=== PATIENT | female | born 1930 | race Caucasian/White ===

== ENCOUNTER → 2016-07-22 | Outpatient (CLI) | payer MEDICARE, OTHER ==
[~2016-07-22] VITALS: Ht 160 cm; Wt 71.0 kg
[~2016-07-22] MED LIST: ACET-66 PO; ASCO500T43 PO; BETA1TAB20 PO; NITR50CA PO; OXYC1TAB66 PO; VITAD1000 PO
[2016-07-22 09:13] VITALS: BP 125/77
== END | disposition home or self-care (01) ==
LOC: SRCNTR 09:09
PROVIDERS: ATTEND Hospitalist
DX: M81.0 Age-related osteoporosis without current pathological fracture (principal); Z87.440 Personal history of urinary (tract) infections
CPT/HCPCS: G0463

== ENCOUNTER → 2016-09-08 | Outpatient (CLI) | payer MEDICARE, OTHER ==
[~2016-09-08] MED LIST changes: +IOHEXOL 300 MG/ML 10 ML VIAL ONE; +LIDOCAINE HCL/PF 1% 30 ML VIAL ONE
== END | disposition home or self-care (01) ==
LOC: RADMN 09:31
PROVIDERS: ATTEND Specialist
DX: M75.101 Unspecified rotator cuff tear or rupture of right shoulder, not specified as traumatic (principal); M19.011 Primary osteoarthritis, right shoulder; M65.811 Other synovitis and tenosynovitis, right shoulder
CPT/HCPCS: 73040; 73201; J3490; Q9967

== ENCOUNTER 2016-10-21 05:36 | Day surgery (SDC) | payer MEDICARE, OTHER ==
[~2016-10-21] VITALS: Ht 160 cm; Wt 70.0 kg
[~2016-10-21 05:36] MED LIST changes: -ACET-66 PO; +CRAN500C3 PO; +IBUP-14 PO; -IOHEXOL 300 MG/ML 10 ML VIAL ONE; -LIDOCAINE HCL/PF 1% 30 ML VIAL ONE; +MULT-248 PO; +OXYC-341 PO; -OXYC1TAB66 PO
[2016-10-21] MEDS ORDERED: SODIUM CHLORIDE 0.9% 1,000 ML IV ONE ×2 (06:00)
[2016-10-21] MEDS ORDERED: TRIAMCINOLONE ACETONIDE 40 MG/ML VIAL ONE (07:47)
[2016-10-21] MEDS ORDERED: LIDOCAINE HCL/PF 2% 5 ML VIAL ONE (07:47)
[2016-10-21] MEDS ORDERED: IOHEXOL 300 MG/ML 10 ML VIAL ONE (07:47)
[2016-10-21] MEDS ORDERED: BUPIVACAINE HCL/PF 0.75% 10 ML VIAL ONE (07:47)
[2016-10-21] MEDS ORDERED: MIDAZOLAM HCL 2 MG/2 ML VIAL ONE (07:48)
[2016-10-21] MEDS ORDERED: LIDOCAINE HCL/PF 1% 30 ML VIAL ONE (07:48)
[2016-10-21] MEDS ORDERED: FentaNYL CITRATE-PF 100 MCG/2 ML VIAL ONE (07:48)
[2016-10-21 08:04] VITALS: BP 165/93
[2016-10-21] MEDS ORDERED: FentaNYL CITRATE-PF 100 MCG/2 ML VIAL IVP ONE ×2 (08:15)
[2016-10-21] MEDS ORDERED: MIDAZOLAM HCL 2 MG/2 ML VIAL IVP ONE (08:15)
[2016-10-21 08:36] VITALS: BP 185/100
[2016-10-21] MEDS ORDERED: TRIAMCINOLONE ACETONIDE 40 MG/ML VIAL IARTIC ONE (08:45)
[2016-10-21] MEDS ORDERED: LIDOCAINE HCL/PF 1% 30 ML VIAL INJ ONE (08:45)
[2016-10-21] MEDS ORDERED: BUPIVACAINE HCL/PF 0.75% 10 ML VIAL IARTIC ONE (08:45)
== END 2016-10-21 12:55 | disposition home or self-care (01) ==
LOC: SDS 05:36
PROVIDERS: ATTEND Specialist
DX: M54.17 Radiculopathy, lumbosacral region (principal); F32.9 Major depressive disorder, single episode, unspecified; M54.9 Dorsalgia, unspecified; H35.3210 Exudative age-related macular degeneration, right eye, stage unspecified; Z98.890 Other specified postprocedural states; Z85.3 Personal history of malignant neoplasm of breast; Z85.828 Personal history of other malignant neoplasm of skin
CPT/HCPCS: 62323; 93005; J2250; J3010; J3301; J3490 ×2; J7030; Q9967

== ENCOUNTER → 2016-10-27 | Outpatient (CLI) | payer MEDICARE, OTHER ==
[~2016-10-27] MED LIST changes: +KETOROLAC TROMETHAMINE 30 MG/ML VIAL IVP ONE
[2016-10-27 10:02] VITALS: BP 120/83
== END | disposition home or self-care (01) ==
LOC: SRCNTR 09:54
PROVIDERS: ATTEND Hospitalist
DX: G89.4 Chronic pain syndrome (principal); N39.0 Urinary tract infection, site not specified; M16.11 Unilateral primary osteoarthritis, right hip
CPT/HCPCS: G0463; J1885

== ENCOUNTER 2016-11-24 09:15 | Emergency (ER) | payer MEDICARE, OTHER ==
[~2016-11-24] VITALS: Ht 162.6 cm; Wt 68.2 kg
[~2016-11-24 09:15] MED LIST changes: +ASCO-412 PO; -ASCO500T43 PO; -KETOROLAC TROMETHAMINE 30 MG/ML VIAL IVP ONE
[2016-11-24] MEDS ORDERED: PERTUSS(ACELL),DIPH,TET VAC/PF 0.5 ML VIAL IM ONE (10:00)
[2016-11-24 10:12] VITALS: BP 148/95
[2016-11-24 10:51] LABS: APPEARANCE,URINE CLOUDY (CLEAR); GLUCOSE, URINE (UA) NEGATIVE (NEGATIVE); KETONES,URINE NEGATIVE (NEGATIVE); LEUKOCYTE ESTERASE ,URINE LARGE (NEGATIVE); OCCULT BLOOD,URINE TRACE (NEGATIVE); PROTEIN,URINE NEGATIVE (NEGATIVE)
[2016-11-24 11:00] LABS: RBC,URINE 0-2 /HPF (0-2); WBC,URINE >100 /HPF (0-5)
== END 2016-11-24 11:05 | disposition home or self-care (01) ==
LOC: EMS 09:22
DX: S80.812A Abrasion, left lower leg, initial encounter (principal); L08.9 Local infection of the skin and subcutaneous tissue, unspecified; N39.0 Urinary tract infection, site not specified; W19.XXXA Unspecified fall, initial encounter; Y93.39 Activity, other involving climbing, rappelling and jumping off; Y92.89 Other specified places as the place of occurrence of the external cause; Y99.8 Other external cause status
CPT/HCPCS: 87086; 90471; 90715; 99284

== ENCOUNTER 2016-11-29 08:56 | Emergency (ER) | payer MEDICARE, OTHER ==
[~2016-11-29] VITALS: Ht 162.6 cm; Wt 68.2 kg
[2016-11-29] MEDS ORDERED: CEPH250 PO (09:11)
[2016-11-29 11:34] LABS: APPEARANCE,URINE CLEAR (CLEAR); GLUCOSE, URINE (UA) NEGATIVE (NEGATIVE); KETONES,URINE NEGATIVE (NEGATIVE); LEUKOCYTE ESTERASE ,URINE NEGATIVE (NEGATIVE); OCCULT BLOOD,URINE NEGATIVE (NEGATIVE); PROTEIN,URINE NEGATIVE (NEGATIVE)
[2016-11-29 11:39] LABS: ADD UA MICROSCOPIC NO
[2016-11-29] MEDS ORDERED: METHOCARBAMOL 500 MG TABLET PO ONE (12:15)
[2016-11-29] MEDS ORDERED: KETOROLAC TROMETHAMINE 60 MG/2 ML VIAL IM ONE (12:15)
[2016-11-29 12:51] VITALS: BP 151/84
== END 2016-11-29 12:55 | disposition home or self-care (01) ==
LOC: EMS 08:58
DX: M54.5 Low back pain (principal); R03.0 Elevated blood-pressure reading, without diagnosis of hypertension; G89.29 Other chronic pain; M19.90 Unspecified osteoarthritis, unspecified site
CPT/HCPCS: 81003; 96372; 99283; J1885

== ENCOUNTER 2017-12-28 07:21 | Emergency (ER) | payer MEDICARE, OTHER ==
[~2017-12-28] VITALS: Ht 162.6 cm; Wt 72.7 kg
[~2017-12-28 07:21] MED LIST changes: +ASCO-330 PO; -ASCO-412 PO; +CEPH250 PO; -IBUP-14 PO; -OXYC-341 PO; +OXYC-530 PO
[2017-12-28] MEDS ORDERED: GABA-529 PO (07:39)
[2017-12-28] MEDS ORDERED: PERTUSS(ACELL),DIPH,TET VAC/PF 0.5 ML VIAL IM ONE (08:15)
[2017-12-28] MEDS ORDERED: IBUPROFEN 600 MG TABLET PO ONE (08:15)
[2017-12-28 10:32] VITALS: BP 163/80
== END 2017-12-28 10:42 | disposition home or self-care (01) ==
LOC: EMS 07:22
DX: S51.812A Laceration without foreign body of left forearm, initial encounter (principal); S80.02XA Contusion of left knee, initial encounter; S29.9XXA Unspecified injury of thorax, initial encounter; G89.29 Other chronic pain; M19.90 Unspecified osteoarthritis, unspecified site; F11.20 Opioid dependence, uncomplicated; Z96.649 Presence of unspecified artificial hip joint; Z87.440 Personal history of urinary (tract) infections; W18.30XA Fall on same level, unspecified, initial encounter; Y93.89 Activity, other specified; Y92.89 Other specified places as the place of occurrence of the external cause; Y99.8 Other external cause status
CPT/HCPCS: 90471; 90715; 99284

== ENCOUNTER 2018-06-14 17:17 | Inpatient (IN) | payer MEDICARE, OTHER ==
[~2018-06-14] VITALS: Ht 167.6 cm; Wt 73.1 kg
[~2018-06-14 17:17] MED LIST changes: -ASCO-330 PO; -BETA1TAB20 PO; -CEPH250 PO; -CRAN500C3 PO; +GABA-529 PO; -MULT-248 PO; -NITR50CA PO; -VITAD1000 PO
[2018-06-14 17:34] LABS: BASOPHILS % (AUTO) 0.4 % (0.0-2.0); EOSINOPHILS % (AUTO) 0.6 % (1.0-6.0); HEMATOCRIT 44.9 % (36-46); HEMOGLOBIN 14.9 g/dL (12.0-16.0); LYMPHOCYTES # (AUTO) 0.4 K/uL (1.0-4.8); LYMPHOCYTES % (AUTO) 6.4 % (22.0-44.0); MEAN CORPUSCULAR HEMOGLOBIN 31.1 pg (26.0-34.0); MEAN CORPUSCULAR HGB CONC 33.2 G/dL (31.0-37.0); MEAN CORPUSCULAR VOLUME 94 fL (80-100); MONOCYTES # (AUTO) 0.8 K/uL (0.1-1.0); MONOCYTES % (AUTO) 12.8 % (2.0-9.0); NEUTROPHILS # (AUTO) 4.8 K/uL (1.8-7.7); NEUTROPHILS % (AUTO) 79.8 % (40.0-70.0); PLATELET COUNT (AUTO) 174 K/uL (150-450); RED BLOOD CELL COUNT(AUTO) 4.78 MIL/uL (4.00-5.20)
[2018-06-14 17:46] LABS: CALCIUM, TOTAL 9.2 mg/dL (8.8-10.5); CREATININE 0.9 mg/dL (0.60-1.30); POTASSIUM 4.1 mmol/L (3.5-5.1)
[2018-06-14 17:49] LABS: PROTHROMBIN TIME 10.7 SEC (9.4-11.6)
[2018-06-14 17:52] LABS: ALBUMIN 3.5 g/dL (3.4-5.0); BILIRUBIN,TOTAL 0.5 mg/dL (0.1-1.0); TOTAL PROTEIN, SERUM 6.9 g/dL (6.4-8.2)
[2018-06-14] MEDS ORDERED: OxyCODONE HCL/ACETAMINOPHEN 5-325 MG TABLET PO ONE (19:45)
[2018-06-14] MEDS ORDERED: ASPIRIN 325 MG TABLET PO ONE (19:45)
[2018-06-14] MEDS ORDERED: ACETAMINOPHEN 325 MG TABLET PO PRN ×2 (19:45→23:00)
[2018-06-14] MEDS ORDERED: 0.9% SODIUM CHLORIDE 10 ML SYRINGE IVP PRN ×2 (19:45→23:00)
[2018-06-14] MEDS ORDERED: ONDANSETRON HCL 4 MG/2 ML VIAL IVP PRN ×2 (19:45→23:00)
[2018-06-14 22:40] VITALS: BP 127/70
[2018-06-14] MEDS ORDERED: MAGNESIUM HYDROXIDE SUSPENSION 30 ML UDCUP PO PRN (23:00)
[2018-06-14] MEDS: DOCUSATE SODIUM 100 MG CAPSULE PO SCH (23:00)
[2018-06-14 23:43] VITALS: BP 134/72
[2018-06-14] MEDS: OxyCODONE HCL/ACETAMINOPHEN 5-325 MG TABLET PO PRN (23:47)
[2018-06-15 04:10] VITALS: BP 123/68
[2018-06-15] MEDS: OxyCODONE HCL/ACETAMINOPHEN 5-325 MG TABLET PO PRN ×4 (05:18→22:36)
[2018-06-15 06:11] LABS: BASOPHILS % (AUTO) 0.4 % (0.0-2.0); EOSINOPHILS % (AUTO) 0.5 % (1.0-6.0); HEMATOCRIT 40.4 % (36-46); HEMOGLOBIN 13.7 g/dL (12.0-16.0); LYMPHOCYTES # (AUTO) 0.5 K/uL (1.0-4.8); LYMPHOCYTES % (AUTO) 9.4 % (22.0-44.0); MEAN CORPUSCULAR HEMOGLOBIN 31.8 pg (26.0-34.0); MEAN CORPUSCULAR HGB CONC 33.9 G/dL (31.0-37.0); MEAN CORPUSCULAR VOLUME 94 fL (80-100); MONOCYTES # (AUTO) 0.8 K/uL (0.1-1.0); MONOCYTES % (AUTO) 15.8 % (2.0-9.0); NEUTROPHILS # (AUTO) 3.6 K/uL (1.8-7.7); NEUTROPHILS % (AUTO) 73.9 % (40.0-70.0); PLATELET COUNT (AUTO) 147 K/uL (150-450); RED BLOOD CELL COUNT(AUTO) 4.32 MIL/uL (4.00-5.20); RED CELL DISTRIBUTION WIDTH 14.1 % (11.5-14.5)
[2018-06-15 06:23] LABS: ALANINE AMINOTRANSFERASE 24 U/L (12-78); ALKALINE PHOSPHATASE 58 U/L (46-116); ANION GAP 11 mmol/L (8-16); ASPARTATE AMINOTRANSFERASE 19 U/L (15-37); BILIRUBIN,TOTAL 0.4 mg/dL (0.1-1.0); CALCIUM, TOTAL 8.7 mg/dL (8.8-10.5); CARBON DIOXIDE 26 mmol/L (22-29); CHLORIDE 103 mmol/L (98-107); CREATININE 0.83 mg/dL (0.60-1.30); GLUCOSE,RANDOM 95 mg/dL (70-110); POTASSIUM 3.8 mmol/L (3.5-5.1); SODIUM SERUM 140 mmol/L (136-145); TOTAL PROTEIN, SERUM 5.9 g/dL (6.4-8.2); UREA NITROGEN, BLOOD 11 mg/dL (7-18)
[2018-06-15 06:58] LABS: GLOMERULAR FILTR. RATE CALC > 60 mL/min (>60)
[2018-06-15 07:05] LABS: AMPHET/METH SCREEN,URINE NEGATIVE (NEGATIVE); BARBITURATE SCREEN, URINE NEGATIVE (NEGATIVE); BENZODIAZEPINES SCREEN,URINE NEGATIVE (NEGATIVE); CANNABINOID SCREEN,URINE NEGATIVE (NEGATIVE); COCAINE SCREEN,URINE NEGATIVE (NEGATIVE); METHADONE SCREEN, URINE NEGATIVE (NEGATIVE); OPIATE SCREEN,URINE NEGATIVE (NEGATIVE)
[2018-06-15 07:07] LABS: PHENCYCLIDINE SCREEN,URINE NEGATIVE (NEGATIVE)
[2018-06-15 07:32] VITALS: BP 140/80
[2018-06-15 07:52] LABS: APPEARANCE,URINE CLEAR (CLEAR); BILIRUBIN,URINE NEGATIVE (NEGATIVE); GLUCOSE, URINE (UA) NEGATIVE (NEGATIVE); KETONES,URINE TRACE mg/dL (NEGATIVE); LEUKOCYTE ESTERASE ,URINE NEGATIVE (NEGATIVE); NITRATE,URINE NEGATIVE (NEGATIVE); OCCULT BLOOD,URINE NEGATIVE (NEGATIVE); PROTEIN,URINE NEGATIVE (NEGATIVE); UROBILINOGEN,URINE 0.2 mg/dL (<=1.0)
[2018-06-15 08:15] LABS: BACTERIA,URINE Rare /HPF (None Seen); RBC,URINE None Seen /HPF (0-2); SQUAMOUS EPITHELIAL CELL,UR Rare /LPF (None Seen); WBC,URINE 0-2 /HPF (0-5)
[2018-06-15] MEDS: DOCUSATE SODIUM 100 MG CAPSULE PO SCH ×2 (09:00→20:12)
[2018-06-15] MEDS ORDERED: ASPIRIN 325 MG TABLET PO SCH (09:00)
[2018-06-15 09:49] LABS: CHOL/HDL RATIO 4.3 (3.9-5.7); CHOLESTEROL 156 mg/dL (131-200); HDL CHOLESTEROL 36 mg/dL (40-60); LDL CHOL (CALC.) 94 mg/dL (0-130); THYROID STIMULATING HORMONE 3.59 uIU/mL (0.36-3.74); TRIGLYCERIDES 132 mg/dL (15-150)
[2018-06-15] MEDS: PANTOPRAZOLE SODIUM 40 MG/VIAL IVP SCH (10:24)
[2018-06-15] MEDS: LORazepam 2 MG/ML VIAL IVP PRN ×2 (10:25→21:24)
[2018-06-15] MEDS ORDERED: GADOBUTROL 1 MMOL/ML 10 ML VIAL IVP ONE (11:18)
[2018-06-15 11:54] VITALS: BP 141/68
[2018-06-15] MEDS ORDERED: BUPR100T6 PO (13:06)
[2018-06-15] MEDS ORDERED: NITR100C9 PO (13:06)
[2018-06-15] MEDS ORDERED: DEXAMETHASONE 4 MG TABLET PO ONE (14:30)
[2018-06-15] MEDS ORDERED: GABA-531 PO (14:36)
[2018-06-15] MEDS: HEPARIN SODIUM,PORCINE 5,000 UNITS/ML VIAL SQ SCH ×2 (15:34→23:46)
[2018-06-15 15:45] VITALS: BP 133/76
[2018-06-15 20:00] VITALS: BP 142/82
[2018-06-15] MEDS: ATORVASTATIN CALCIUM 20 MG TABLET PO SCH (20:13)
[2018-06-15] MEDS: GuaiFENesin/D-METHORPHAN/PHENYLEPH 5 ML LIQUID ORAL.SYG PO PRN (21:24)
[2018-06-15] MEDS: DEXAMETHASONE 2 MG TABLET PO SCH (21:25)
[2018-06-15 23:41] VITALS: BP 131/73
[2018-06-16 03:49] VITALS: BP 133/80
[2018-06-16] MEDS: OxyCODONE HCL/ACETAMINOPHEN 5-325 MG TABLET PO PRN ×2 (06:32→22:27)
[2018-06-16] MEDS: LORazepam 2 MG/ML VIAL IVP PRN (06:33)
[2018-06-16 07:30] VITALS: BP 151/75
[2018-06-16] MEDS: HEPARIN SODIUM,PORCINE 5,000 UNITS/ML VIAL SQ SCH ×3 (08:36→22:28)
[2018-06-16] MEDS: DEXAMETHASONE 2 MG TABLET PO SCH ×2 (08:36→16:23)
[2018-06-16] MEDS: ASPIRIN 325 MG TABLET PO SCH (08:37)
[2018-06-16] MEDS: DOCUSATE SODIUM 100 MG CAPSULE PO SCH ×2 (08:37→20:53)
[2018-06-16] MEDS: PANTOPRAZOLE SODIUM 40 MG/VIAL IVP SCH (08:37)
[2018-06-16] MEDS: GABAPENTIN 300 MG CAPSULE PO SCH ×2 (10:38→20:53)
[2018-06-16 11:03] VITALS: BP 117/78
[2018-06-16] MEDS: NITROFURANTOIN/NITROFURAN MAC 100 MG CAPSULE [MACROBID] PO SCH (12:24)
[2018-06-16] MEDS: BuPROPion HCL 100 MG SR TABLET PO SCH (12:24)
[2018-06-16 12:58] LABS: BASOPHILS % (AUTO) 0.7 % (0.0-2.0); EOSINOPHILS % (AUTO) 0 % (1.0-6.0); HEMATOCRIT 43.1 % (36-46); HEMOGLOBIN 14.3 g/dL (12.0-16.0); LYMPHOCYTES # (AUTO) 0.6 K/uL (1.0-4.8); MEAN CORPUSCULAR HEMOGLOBIN 31.4 pg (26.0-34.0); MEAN CORPUSCULAR HGB CONC 33.2 G/dL (31.0-37.0); MEAN CORPUSCULAR VOLUME 95 fL (80-100); MONOCYTES # (AUTO) 0.5 K/uL (0.1-1.0); NEUTROPHILS # (AUTO) 4.7 K/uL (1.8-7.7); NEUTROPHILS % (AUTO) 81.3 % (40.0-70.0); PLATELET COUNT (AUTO) 182 K/uL (150-450); RED BLOOD CELL COUNT(AUTO) 4.56 MIL/uL (4.00-5.20); RED CELL DISTRIBUTION WIDTH 13.8 % (11.5-14.5)
[2018-06-16 13:05] LABS: CALCIUM, TOTAL 8.6 mg/dL (8.8-10.5); CREATININE 0.95 mg/dL (0.60-1.30); POTASSIUM 4.4 mmol/L (3.5-5.1)
[2018-06-16 15:16] VITALS: BP 116/75
[2018-06-16 19:43] VITALS: BP 132/75
[2018-06-16] MEDS: ATORVASTATIN CALCIUM 20 MG TABLET PO SCH (20:52)
[2018-06-17] VITALS (8 sets, daily range): BP systolic 109–151; BP diastolic 52–83
[2018-06-17] MEDS ORDERED: CLOPIDOGREL BISULFATE 75 MG TABLET PO SCH (09:00)
[2018-06-17] MEDS: HEPARIN SODIUM,PORCINE 5,000 UNITS/ML VIAL SQ SCH (09:23)
[2018-06-17] MEDS: GABAPENTIN 300 MG CAPSULE PO SCH ×2 (09:24→20:28)
[2018-06-17] MEDS: ASPIRIN 325 MG TABLET PO SCH (09:24)
[2018-06-17] MEDS: METOPROLOL SUCCINATE 25 MG ER TABLET PO SCH (09:24)
[2018-06-17] MEDS: NITROFURANTOIN/NITROFURAN MAC 100 MG CAPSULE [MACROBID] PO SCH (09:24)
[2018-06-17] MEDS: DOCUSATE SODIUM 100 MG CAPSULE PO SCH ×2 (09:24→20:31)
[2018-06-17] MEDS: BuPROPion HCL 100 MG SR TABLET PO SCH ×2 (09:24→12:27)
[2018-06-17] MEDS: PANTOPRAZOLE SODIUM 40 MG/VIAL IVP SCH (09:24)
[2018-06-17] MEDS: OxyCODONE HCL/ACETAMINOPHEN 5-325 MG TABLET PO PRN ×3 (13:45→22:50)
[2018-06-17] MEDS ORDERED: METO25XL PO (14:34)
[2018-06-17] MEDS ORDERED: CLOP75TA3 PO (14:35)
[2018-06-17] MEDS ORDERED: ATOR20TA86 PO (14:35)
[2018-06-17] MEDS ORDERED: ASPI81TA39 PO (14:35)
[2018-06-17 16:42] LABS: BASOPHILS % (AUTO) 0.6 % (0.0-2.0); EOSINOPHILS % (AUTO) 0.8 % (1.0-6.0); HEMATOCRIT 41.6 % (36-46); HEMOGLOBIN 13.9 g/dL (12.0-16.0); LYMPHOCYTES % (AUTO) 18.8 % (22.0-44.0); MEAN CORPUSCULAR HEMOGLOBIN 31.2 pg (26.0-34.0); MEAN CORPUSCULAR HGB CONC 33.4 G/dL (31.0-37.0); MEAN CORPUSCULAR VOLUME 94 fL (80-100); MONOCYTES # (AUTO) 0.6 K/uL (0.1-1.0); MONOCYTES % (AUTO) 12.2 % (2.0-9.0); NEUTROPHILS # (AUTO) 3.4 K/uL (1.8-7.7); NEUTROPHILS % (AUTO) 67.6 % (40.0-70.0); PLATELET COUNT (AUTO) 175 K/uL (150-450); RED BLOOD CELL COUNT(AUTO) 4.45 MIL/uL (4.00-5.20); RED CELL DISTRIBUTION WIDTH 13.6 % (11.5-14.5)
[2018-06-17] MEDS: ATORVASTATIN CALCIUM 20 MG TABLET PO SCH (20:28)
[2018-06-17] MEDS: LORazepam 2 MG/ML VIAL IVP PRN (20:48)
[2018-06-17] MEDS ORDERED: MORPHINE SULFATE 2 MG/ML SYRINGE IVP PRN (21:45)
[2018-06-18] VITALS (7 sets, daily range): BP systolic 102–135; BP diastolic 53–69
[2018-06-18] MEDS: OxyCODONE HCL/ACETAMINOPHEN 5-325 MG TABLET PO PRN ×3 (03:14→19:52)
[2018-06-18] MEDS ORDERED: SODIUM CHLORIDE 0.9% 100 ML ONE (04:22)
[2018-06-18] MEDS ORDERED: IOVERSOL 350 MG/ML 150 ML VIAL ONE (04:22)
[2018-06-18 06:13] LABS: BASOPHILS % (AUTO) 0.5 % (0.0-2.0); EOSINOPHILS % (AUTO) 1.6 % (1.0-6.0); HEMATOCRIT 39.8 % (36-46); HEMOGLOBIN 13.2 g/dL (12.0-16.0); LYMPHOCYTES % (AUTO) 20.9 % (22.0-44.0); MEAN CORPUSCULAR HEMOGLOBIN 31.2 pg (26.0-34.0); MEAN CORPUSCULAR HGB CONC 33.2 G/dL (31.0-37.0); MEAN CORPUSCULAR VOLUME 94 fL (80-100); MONOCYTES # (AUTO) 0.6 K/uL (0.1-1.0); MONOCYTES % (AUTO) 13.5 % (2.0-9.0); NEUTROPHILS # (AUTO) 2.9 K/uL (1.8-7.7); NEUTROPHILS % (AUTO) 63.5 % (40.0-70.0); PLATELET COUNT (AUTO) 181 K/uL (150-450); RED BLOOD CELL COUNT(AUTO) 4.24 MIL/uL (4.00-5.20)
[2018-06-18 06:34] LABS: ALBUMIN 2.8 g/dL (3.4-5.0); BILIRUBIN,TOTAL 0.4 mg/dL (0.1-1.0); CALCIUM, TOTAL 8.6 mg/dL (8.8-10.5); CREATININE 0.99 mg/dL (0.60-1.30); MAGNESIUM 1.9 mg/dL (1.80-2.40); POTASSIUM 4.4 mmol/L (3.5-5.1); TOTAL PROTEIN, SERUM 5.4 g/dL (6.4-8.2)
[2018-06-18] MEDS: DOCUSATE SODIUM 100 MG CAPSULE PO SCH ×3 (09:34→21:00)
[2018-06-18] MEDS: BuPROPion HCL 100 MG SR TABLET PO SCH ×2 (09:34→12:57)
[2018-06-18] MEDS: METOPROLOL SUCCINATE 25 MG ER TABLET PO SCH (09:34)
[2018-06-18] MEDS: NITROFURANTOIN/NITROFURAN MAC 100 MG CAPSULE [MACROBID] PO SCH (09:34)
[2018-06-18] MEDS: PANTOPRAZOLE SODIUM 40 MG/VIAL IVP SCH (09:34)
[2018-06-18] MEDS: GABAPENTIN 300 MG CAPSULE PO SCH ×2 (09:34→19:52)
[2018-06-18] MEDS: ATORVASTATIN CALCIUM 20 MG TABLET PO SCH (19:52)
[2018-06-19 00:32] VITALS: BP 138/71
[2018-06-19] MEDS: OxyCODONE HCL/ACETAMINOPHEN 5-325 MG TABLET PO PRN (02:30)
[2018-06-19 05:29] LABS: BASOPHILS % (AUTO) 0.2 % (0.0-2.0); EOSINOPHILS % (AUTO) 1.4 % (1.0-6.0); HEMOGLOBIN 12.2 g/dL (12.0-16.0); LYMPHOCYTES % (AUTO) 15.2 % (22.0-44.0); MEAN CORPUSCULAR HEMOGLOBIN 31.7 pg (26.0-34.0); MEAN CORPUSCULAR VOLUME 93 fL (80-100); MONOCYTES # (AUTO) 0.9 K/uL (0.1-1.0); MONOCYTES % (AUTO) 13.9 % (2.0-9.0); NEUTROPHILS # (AUTO) 4.4 K/uL (1.8-7.7); NEUTROPHILS % (AUTO) 69.3 % (40.0-70.0); PLATELET COUNT (AUTO) 179 K/uL (150-450); RED BLOOD CELL COUNT(AUTO) 3.86 MIL/uL (4.00-5.20); RED CELL DISTRIBUTION WIDTH 13.8 % (11.5-14.5)
[2018-06-19 05:45] LABS: ALBUMIN 2.8 g/dL (3.4-5.0); BILIRUBIN,TOTAL 0.4 mg/dL (0.1-1.0); CALCIUM, TOTAL 8.6 mg/dL (8.8-10.5); CREATININE 0.97 mg/dL (0.60-1.30); MAGNESIUM 1.8 mg/dL (1.80-2.40); TOTAL PROTEIN, SERUM 5.8 g/dL (6.4-8.2)
[2018-06-19 06:07] VITALS: BP 113/61
[2018-06-19 07:20] VITALS: BP 118/60
[2018-06-19] MEDS: BuPROPion HCL 100 MG SR TABLET PO SCH ×2 (08:17→12:01)
[2018-06-19] MEDS: METOPROLOL SUCCINATE 25 MG ER TABLET PO SCH (08:17)
[2018-06-19] MEDS: NITROFURANTOIN/NITROFURAN MAC 100 MG CAPSULE [MACROBID] PO SCH (08:17)
[2018-06-19] MEDS: GABAPENTIN 300 MG CAPSULE PO SCH (08:17)
[2018-06-19] MEDS: PANTOPRAZOLE SODIUM 40 MG/VIAL IVP SCH (08:18)
[2018-06-19] MEDS: DOCUSATE SODIUM 100 MG CAPSULE PO SCH (08:19)
[2018-06-19 11:13] VITALS: BP 111/64
[2018-06-19] MEDS: GuaiFENesin/D-METHORPHAN/PHENYLEPH 5 ML LIQUID ORAL.SYG PO PRN (12:01)
[2018-06-19] MEDS ORDERED: BENZONATATE 100 MG CAPSULE PO SCH (16:00)
[2018-06-20] MEDS ORDERED: FAMOTIDINE 20 MG TABLET PO SCH (09:00)
== END 2018-06-19 14:40 | DRG 69 ==
LOC: EMS 17:41 → 5N 21:07
PROVIDERS: ADMIT Internal Medicine; ATTEND Internal Medicine
DX: G45.9 Transient cerebral ischemic attack, unspecified (principal); G81.94 Hemiplegia, unspecified affecting left nondominant side; I47.2 Ventricular tachycardia; D32.9 Benign neoplasm of meninges, unspecified; G89.29 Other chronic pain; I45.10 Unspecified right bundle-branch block; M19.90 Unspecified osteoarthritis, unspecified site; R29.6 Repeated falls; R29.810 Facial weakness; S30.1XXA Contusion of abdominal wall, initial encounter; Z85.828 Personal history of other malignant neoplasm of skin; Z87.891 Personal history of nicotine dependence; Z91.81 History of falling; Z96.612 Presence of left artificial shoulder joint; Z96.642 Presence of left artificial hip joint; Z96.659 Presence of unspecified artificial knee joint
CPT/HCPCS: 51702; 70496; 70553; 71260; 72193; 74160; 74176; 80307; 83036; 83735; 84443; 86850; 86900; 86901; 87081; 92610; 93005; 93306; 96374; 97116; 97162; 97167; 97530; 97535; 99291; A9585; C9113; G0378; J1644; J2060; J2270; J2405; J7050; J8540

== ENCOUNTER 2018-06-19 14:40 | Inpatient (IN) | payer MEDICARE, OTHER ==
[~2018-06-19] VITALS: Ht 162.6 cm; Wt 70.8 kg
[~2018-06-19 14:40] MED LIST changes: +ASPI81TA39 PO; +ATOR20TA86 PO; +BUPR100T6 PO; +CLOP75TA3 PO; -GABA-529 PO; +GABA-531 PO; +METO25XL PO; +NITR100C9 PO
[2018-06-19 15:00] VITALS: BP 125/61
[2018-06-19] MEDS ORDERED: DEXTROSE 50%-WATER 25 GM/50 ML SYRINGE IVP PRN ×2 (16:30)
[2018-06-19] MEDS ORDERED: INSULIN LISPRO 100 UNITS/ML SQ PRN ×2 (16:30)
[2018-06-19] MEDS ORDERED: ACETAMINOPHEN 325 MG TABLET PO PRN (16:30)
[2018-06-19] MEDS ORDERED: MAGNESIUM HYDROXIDE SUSPENSION 30 ML UDCUP PO PRN (16:45)
[2018-06-19] MEDS ORDERED: ONDANSETRON HCL 4 MG TABLET PO PRN (16:45)
[2018-06-19] MEDS: OxyCODONE HCL/ACETAMINOPHEN 5-325 MG TABLET PO PRN ×2 (17:37→21:54)
[2018-06-19] MEDS ORDERED: PNEUMOCOCCAL VACCINE POLYVALENT 0.5 ML VIAL [PPSV23] IM ONE (18:45)
[2018-06-19] MEDS: GABAPENTIN 300 MG CAPSULE PO SCH (20:35)
[2018-06-19] MEDS: DOCUSATE SODIUM 100 MG CAPSULE PO SCH (20:35)
[2018-06-19] MEDS: ATORVASTATIN CALCIUM 20 MG TABLET PO SCH (20:35)
[2018-06-19] MEDS: SENNA 187 MG TABLET PO SCH (20:35)
[2018-06-19] MEDS: 0.9% SODIUM CHLORIDE 10 ML SYRINGE IVP SCH (20:36)
[2018-06-19 23:30] VITALS: BP 118/57
[2018-06-20] MEDS: BENZONATATE 100 MG CAPSULE PO SCH ×3 (01:20→16:34)
[2018-06-20] MEDS: 0.9% SODIUM CHLORIDE 10 ML SYRINGE IVP SCH ×3 (01:21→16:35)
[2018-06-20] MEDS: OxyCODONE HCL/ACETAMINOPHEN 5-325 MG TABLET PO PRN ×2 (03:59→13:28)
[2018-06-20] MEDS: GuaiFENesin [SUGAR-FREE] 200 MG/10 ML SOLUTION UDCUP PO PRN (04:00)
[2018-06-20 06:32] LABS: BASOPHILS % (AUTO) 0.5 % (0.0-2.0); EOSINOPHILS % (AUTO) 1.5 % (1.0-6.0); HEMATOCRIT 32.7 % (36-46); HEMOGLOBIN 11.1 g/dL (12.0-16.0); LYMPHOCYTES % (AUTO) 14.3 % (22.0-44.0); MEAN CORPUSCULAR HEMOGLOBIN 31.4 pg (26.0-34.0); MEAN CORPUSCULAR HGB CONC 33.9 G/dL (31.0-37.0); MEAN CORPUSCULAR VOLUME 93 fL (80-100); MONOCYTES # (AUTO) 0.9 K/uL (0.1-1.0); MONOCYTES % (AUTO) 12.5 % (2.0-9.0); NEUTROPHILS # (AUTO) 4.9 K/uL (1.8-7.7); NEUTROPHILS % (AUTO) 71.2 % (40.0-70.0); PLATELET COUNT (AUTO) 164 K/uL (150-450); RED BLOOD CELL COUNT(AUTO) 3.53 MIL/uL (4.00-5.20); RED CELL DISTRIBUTION WIDTH 13.8 % (11.5-14.5)
[2018-06-20 06:59] LABS: ANION GAP 7 mmol/L (8-16); CALCIUM, TOTAL 8.4 mg/dL (8.8-10.5); CARBON DIOXIDE 27 mmol/L (22-29); CHLORIDE 102 mmol/L (98-107); CREATININE 0.88 mg/dL (0.60-1.30); GLUCOSE,RANDOM 115 mg/dL (70-110); POTASSIUM 3.9 mmol/L (3.5-5.1); SODIUM SERUM 136 mmol/L (136-145); UREA NITROGEN, BLOOD 17 mg/dL (7-18)
[2018-06-20 07:01] LABS: GLOMERULAR FILTR. RATE CALC > 60 mL/min (>60)
[2018-06-20 07:31] VITALS: BP 117/57
[2018-06-20] MEDS: FAMOTIDINE 20 MG TABLET PO SCH (09:16)
[2018-06-20] MEDS: METOPROLOL SUCCINATE 25 MG ER TABLET PO SCH (09:16)
[2018-06-20] MEDS: GABAPENTIN 300 MG CAPSULE PO SCH ×2 (09:16→20:57)
[2018-06-20] MEDS: NITROFURANTOIN/NITROFURAN MAC 100 MG CAPSULE [MACROBID] PO SCH (09:16)
[2018-06-20] MEDS: DOCUSATE SODIUM 100 MG CAPSULE PO SCH ×2 (09:17→20:57)
[2018-06-20] MEDS: BuPROPion HCL 100 MG SR TABLET PO SCH ×2 (09:21→12:49)
[2018-06-20] MEDS ORDERED: LIDOCAINE 5% TRANSDERMAL PATCH TD SCH (11:30)
[2018-06-20 16:16] VITALS: BP 131/63
[2018-06-20] MEDS: SENNA 187 MG TABLET PO SCH (20:57)
[2018-06-20] MEDS: LIDOCAINE 5% TRANSDERMAL PATCH TD SCH (20:57)
[2018-06-20] MEDS: ATORVASTATIN CALCIUM 20 MG TABLET PO SCH (20:57)
[2018-06-20] MEDS: LORazepam 0.5 MG TABLET PO PRN (20:59)
[2018-06-20] MEDS ORDERED: -LIDODERM PATCH NOTE- MISC SCH (21:00)
[2018-06-21] MEDS: BENZONATATE 100 MG CAPSULE PO SCH ×4 (00:36→21:06)
[2018-06-21] MEDS: 0.9% SODIUM CHLORIDE 10 ML SYRINGE IVP SCH ×2 (00:36→08:31)
[2018-06-21] MEDS: GuaiFENesin [SUGAR-FREE] 200 MG/10 ML SOLUTION UDCUP PO PRN (00:54)
[2018-06-21 01:12] VITALS: BP 123/68
[2018-06-21 07:30] VITALS: BP 121/64
[2018-06-21] MEDS: NITROFURANTOIN/NITROFURAN MAC 100 MG CAPSULE [MACROBID] PO SCH (08:29)
[2018-06-21] MEDS: OxyCODONE HCL/ACETAMINOPHEN 5-325 MG TABLET PO PRN ×3 (08:29→13:09)
[2018-06-21] MEDS: DOCUSATE SODIUM 100 MG CAPSULE PO SCH ×2 (08:30→21:06)
[2018-06-21] MEDS: BuPROPion HCL 100 MG SR TABLET PO SCH ×2 (08:30→12:19)
[2018-06-21] MEDS: CLOPIDOGREL BISULFATE 75 MG TABLET PO SCH (08:30)
[2018-06-21] MEDS: METOPROLOL SUCCINATE 25 MG ER TABLET PO SCH (08:30)
[2018-06-21] MEDS: FAMOTIDINE 20 MG TABLET PO SCH (08:30)
[2018-06-21] MEDS: GABAPENTIN 300 MG CAPSULE PO SCH ×2 (08:30→21:06)
[2018-06-21] MEDS: ASPIRIN 81 MG EC TABLET PO SCH (08:30)
[2018-06-21] MEDS: -LIDODERM PATCH NOTE- MISC SCH (10:03)
[2018-06-21 18:36] VITALS: BP 115/56
[2018-06-21] MEDS: LIDOCAINE 5% TRANSDERMAL PATCH TD SCH (21:06)
[2018-06-21] MEDS: ATORVASTATIN CALCIUM 20 MG TABLET PO SCH (21:06)
[2018-06-21] MEDS: SENNA 187 MG TABLET PO SCH (21:06)
[2018-06-21] MEDS: LORazepam 0.5 MG TABLET PO PRN (21:06)
[2018-06-22 02:30] VITALS: BP 114/65
[2018-06-22] MEDS: GuaiFENesin [SUGAR-FREE] 200 MG/10 ML SOLUTION UDCUP PO PRN ×2 (02:42→22:22)
[2018-06-22] MEDS: -LIDODERM PATCH NOTE- MISC SCH (08:20)
[2018-06-22] MEDS: DOCUSATE SODIUM 100 MG CAPSULE PO SCH ×2 (08:22→20:24)
[2018-06-22] MEDS: BuPROPion HCL 100 MG SR TABLET PO SCH ×2 (08:23→12:53)
[2018-06-22] MEDS: CLOPIDOGREL BISULFATE 75 MG TABLET PO SCH (08:24)
[2018-06-22] MEDS: METOPROLOL SUCCINATE 25 MG ER TABLET PO SCH (08:25)
[2018-06-22] MEDS: FAMOTIDINE 20 MG TABLET PO SCH (08:25)
[2018-06-22] MEDS: OxyCODONE HCL/ACETAMINOPHEN 5-325 MG TABLET PO PRN ×3 (08:31→22:28)
[2018-06-22] MEDS: ASPIRIN 81 MG EC TABLET PO SCH (08:31)
[2018-06-22 08:48] VITALS: BP 128/64
[2018-06-22] MEDS ORDERED: ASPIRIN 81 MG CHEWABLE TABLET PO SCH (09:00)
[2018-06-22] MEDS: NITROFURANTOIN/NITROFURAN MAC 100 MG CAPSULE [MACROBID] PO SCH (10:45)
[2018-06-22] MEDS: GABAPENTIN 300 MG CAPSULE PO SCH ×2 (10:45→20:24)
[2018-06-22] MEDS: BENZONATATE 100 MG CAPSULE PO SCH ×3 (10:46→20:24)
[2018-06-22 15:15] VITALS: BP 113/59
[2018-06-22] MEDS: SENNA 187 MG TABLET PO SCH (20:24)
[2018-06-22] MEDS: ATORVASTATIN CALCIUM 20 MG TABLET PO SCH (20:24)
[2018-06-22] MEDS: LIDOCAINE 5% TRANSDERMAL PATCH TD SCH (20:25)
[2018-06-23] VITALS: BP 117/66
[2018-06-23] MEDS: LORazepam 0.5 MG TABLET PO PRN (01:06)
[2018-06-23] MEDS ORDERED: BUSP15 PO (06:20)
[2018-06-23 07:24] VITALS: BP 136/61
[2018-06-23 08:26] LABS: APPEARANCE,URINE CLOUDY (CLEAR); BILIRUBIN,URINE NEGATIVE (NEGATIVE); GLUCOSE, URINE (UA) NEGATIVE (NEGATIVE); KETONES,URINE NEGATIVE (NEGATIVE); LEUKOCYTE ESTERASE ,URINE SMALL (NEGATIVE); NITRATE,URINE NEGATIVE (NEGATIVE); OCCULT BLOOD,URINE NEGATIVE (NEGATIVE); PROTEIN,URINE NEGATIVE (NEGATIVE); UROBILINOGEN,URINE 0.2 mg/dL (<=1.0)
[2018-06-23 08:48] LABS: BACTERIA,URINE Few /HPF (None Seen); RBC,URINE None Seen /HPF (0-2); SQUAMOUS EPITHELIAL CELL,UR Few /LPF (None Seen)
[2018-06-23] MEDS: DOCUSATE SODIUM 100 MG CAPSULE PO SCH ×2 (09:12→20:18)
[2018-06-23] MEDS: BuPROPion HCL 100 MG SR TABLET PO SCH ×2 (09:12→12:42)
[2018-06-23] MEDS: ASPIRIN 81 MG EC TABLET PO SCH (09:12)
[2018-06-23] MEDS: NITROFURANTOIN/NITROFURAN MAC 100 MG CAPSULE [MACROBID] PO SCH (09:12)
[2018-06-23] MEDS: FAMOTIDINE 20 MG TABLET PO SCH (09:12)
[2018-06-23] MEDS: METOPROLOL SUCCINATE 25 MG ER TABLET PO SCH (09:12)
[2018-06-23] MEDS: CLOPIDOGREL BISULFATE 75 MG TABLET PO SCH (09:12)
[2018-06-23] MEDS: GABAPENTIN 300 MG CAPSULE PO SCH ×3 (09:12→20:18)
[2018-06-23] MEDS: BENZONATATE 100 MG CAPSULE PO SCH ×3 (09:12→20:18)
[2018-06-23] MEDS: -LIDODERM PATCH NOTE- MISC SCH (09:15)
[2018-06-23] MEDS: OxyCODONE HCL/ACETAMINOPHEN 5-325 MG TABLET PO PRN ×2 (11:38→22:20)
[2018-06-23 15:44] VITALS: BP 123/61
[2018-06-23] MEDS: SENNA 187 MG TABLET PO SCH (20:18)
[2018-06-23] MEDS: BusPIRone HCL 15 MG TABLET PO SCH (20:18)
[2018-06-23] MEDS: ATORVASTATIN CALCIUM 20 MG TABLET PO SCH (20:18)
[2018-06-23] MEDS: COLD CREAM, SKIN EMOLLIENT 340 GM JAR TP SCH (20:19)
[2018-06-23] MEDS: LIDOCAINE 5% TRANSDERMAL PATCH TD SCH (20:19)
[2018-06-24 01:27] VITALS: BP 127/62
[2018-06-24] MEDS: BENZOCAINE/MENTHOL LOZENGE PO PRN (03:58)
[2018-06-24 08:44] VITALS: BP 127/66
[2018-06-24] MEDS: BuPROPion HCL 100 MG SR TABLET PO SCH ×2 (09:52→12:38)
[2018-06-24] MEDS: AMOX TR/POT CLAV 500 MG/125 MG TABLET PO SCH ×3 (09:52→20:27)
[2018-06-24] MEDS: GABAPENTIN 300 MG CAPSULE PO SCH ×3 (09:52→20:27)
[2018-06-24] MEDS: NITROFURANTOIN/NITROFURAN MAC 100 MG CAPSULE [MACROBID] PO SCH (09:52)
[2018-06-24] MEDS: CLOPIDOGREL BISULFATE 75 MG TABLET PO SCH (09:52)
[2018-06-24] MEDS: BusPIRone HCL 15 MG TABLET PO SCH ×2 (09:52→20:27)
[2018-06-24] MEDS: BENZONATATE 100 MG CAPSULE PO SCH ×3 (09:52→20:27)
[2018-06-24] MEDS: DOCUSATE SODIUM 100 MG CAPSULE PO SCH ×2 (09:52→20:27)
[2018-06-24] MEDS: METOPROLOL SUCCINATE 25 MG ER TABLET PO SCH (09:52)
[2018-06-24] MEDS: FAMOTIDINE 20 MG TABLET PO SCH (09:52)
[2018-06-24] MEDS: ASPIRIN 81 MG EC TABLET PO SCH (09:53)
[2018-06-24] MEDS: LACTOBAC ACID/BULG/BIFID/THERM TABLET PO SCH (09:53)
[2018-06-24] MEDS: -LIDODERM PATCH NOTE- MISC SCH (09:54)
[2018-06-24] MEDS: COLD CREAM, SKIN EMOLLIENT 340 GM JAR TP SCH ×2 (10:01→20:28)
[2018-06-24] MEDS: OxyCODONE HCL/ACETAMINOPHEN 5-325 MG TABLET PO PRN ×2 (14:01→19:12)
[2018-06-24 16:11] VITALS: BP 121/53
[2018-06-24] MEDS: SENNA 187 MG TABLET PO SCH (20:27)
[2018-06-24] MEDS: LIDOCAINE 5% TRANSDERMAL PATCH TD SCH (20:27)
[2018-06-24] MEDS: ATORVASTATIN CALCIUM 20 MG TABLET PO SCH (20:27)
[2018-06-25 00:06] VITALS: BP 121/63
[2018-06-25 06:20] LABS: BASOPHILS % (AUTO) 0.9 % (0.0-2.0); EOSINOPHILS % (AUTO) 4.1 % (1.0-6.0); HEMATOCRIT 33.3 % (36-46); HEMOGLOBIN 11.4 g/dL (12.0-16.0); LYMPHOCYTES % (AUTO) 14.3 % (22.0-44.0); MEAN CORPUSCULAR HEMOGLOBIN 32.2 pg (26.0-34.0); MEAN CORPUSCULAR HGB CONC 34.2 G/dL (31.0-37.0); MEAN CORPUSCULAR VOLUME 94 fL (80-100); MONOCYTES % (AUTO) 12.9 % (2.0-9.0); NEUTROPHILS # (AUTO) 4.6 K/uL (1.8-7.7); NEUTROPHILS % (AUTO) 67.8 % (40.0-70.0); PLATELET COUNT (AUTO) 257 K/uL (150-450); RED BLOOD CELL COUNT(AUTO) 3.54 MIL/uL (4.00-5.20); RED CELL DISTRIBUTION WIDTH 13.8 % (11.5-14.5)
[2018-06-25 06:21] LABS: MONOCYTES # (AUTO) 0.9 K/uL (0.1-1.0)
[2018-06-25 07:46] VITALS: BP 140/61
[2018-06-25] MEDS: NITROFURANTOIN/NITROFURAN MAC 100 MG CAPSULE [MACROBID] PO SCH (08:35)
[2018-06-25] MEDS: METOPROLOL SUCCINATE 25 MG ER TABLET PO SCH (08:35)
[2018-06-25] MEDS: AMOX TR/POT CLAV 500 MG/125 MG TABLET PO SCH ×3 (08:36→21:49)
[2018-06-25] MEDS: BENZONATATE 100 MG CAPSULE PO SCH ×3 (08:36→21:49)
[2018-06-25] MEDS: BuPROPion HCL 100 MG SR TABLET PO SCH ×2 (08:36→11:40)
[2018-06-25] MEDS: CLOPIDOGREL BISULFATE 75 MG TABLET PO SCH (08:36)
[2018-06-25] MEDS: DOCUSATE SODIUM 100 MG CAPSULE PO SCH (08:36)
[2018-06-25] MEDS: GABAPENTIN 300 MG CAPSULE PO SCH ×3 (08:36→21:49)
[2018-06-25] MEDS: ASPIRIN 81 MG EC TABLET PO SCH (08:36)
[2018-06-25] MEDS: FAMOTIDINE 20 MG TABLET PO SCH (08:36)
[2018-06-25] MEDS: LACTOBAC ACID/BULG/BIFID/THERM TABLET PO SCH (08:37)
[2018-06-25] MEDS: COLD CREAM, SKIN EMOLLIENT 340 GM JAR TP SCH ×2 (08:37→21:51)
[2018-06-25] MEDS: -LIDODERM PATCH NOTE- MISC SCH (08:38)
[2018-06-25] MEDS: BusPIRone HCL 15 MG TABLET PO SCH ×2 (08:38→21:49)
[2018-06-25] MEDS: POLYETHYLENE GLYCOL 3350 17 GM PACKET PO SCH (10:00)
[2018-06-25] MEDS: OxyCODONE HCL/ACETAMINOPHEN 5-325 MG TABLET PO PRN ×2 (10:12→14:02)
[2018-06-25] MEDS: GuaiFENesin [SUGAR-FREE] 200 MG/10 ML SOLUTION UDCUP PO PRN ×2 (14:00→22:30)
[2018-06-25 16:00] VITALS: BP 121/73
[2018-06-25] MEDS: DOCUSATE SODIUM 250 MG CAPSULE PO SCH (21:00)
[2018-06-25] MEDS: ATORVASTATIN CALCIUM 20 MG TABLET PO SCH (21:49)
[2018-06-25] MEDS: LIDOCAINE 5% TRANSDERMAL PATCH TD SCH (21:50)
[2018-06-25 23:05] VITALS: BP 145/63
[2018-06-26] MEDS ORDERED: ASPI-1182 PO (04:17)
[2018-06-26] MEDS ORDERED: FAMO20 PO (04:41)
[2018-06-26] MEDS ORDERED: BENZ-51 PO (04:41)
[2018-06-26] MEDS ORDERED: DOCU250C91 PO (04:42)
[2018-06-26] MEDS ORDERED: ACID1TAB13 PO (04:44)
[2018-06-26] MEDS ORDERED: ALBO180CR TP (04:49)
[2018-06-26 08:00] VITALS: BP 125/65
[2018-06-26] MEDS: OxyCODONE HCL/ACETAMINOPHEN 5-325 MG TABLET PO PRN ×3 (08:00→23:19)
[2018-06-26] MEDS: GuaiFENesin [SUGAR-FREE] 200 MG/10 ML SOLUTION UDCUP PO PRN (08:00)
[2018-06-26] MEDS: -LIDODERM PATCH NOTE- MISC SCH (08:23)
[2018-06-26] MEDS: AMOX TR/POT CLAV 500 MG/125 MG TABLET PO SCH ×3 (08:24→20:22)
[2018-06-26] MEDS: NITROFURANTOIN/NITROFURAN MAC 100 MG CAPSULE [MACROBID] PO SCH (08:24)
[2018-06-26] MEDS: METOPROLOL SUCCINATE 25 MG ER TABLET PO SCH (08:24)
[2018-06-26] MEDS: COLD CREAM, SKIN EMOLLIENT 340 GM JAR TP SCH ×2 (08:24→20:26)
[2018-06-26] MEDS: CLOPIDOGREL BISULFATE 75 MG TABLET PO SCH (08:24)
[2018-06-26] MEDS: ASPIRIN 81 MG EC TABLET PO SCH (08:24)
[2018-06-26] MEDS: LACTOBAC ACID/BULG/BIFID/THERM TABLET PO SCH (08:24)
[2018-06-26] MEDS: FAMOTIDINE 20 MG TABLET PO SCH (08:24)
[2018-06-26] MEDS: BuPROPion HCL 100 MG SR TABLET PO SCH ×2 (08:24→12:25)
[2018-06-26] MEDS: BusPIRone HCL 15 MG TABLET PO SCH ×2 (08:24→20:22)
[2018-06-26] MEDS: GABAPENTIN 300 MG CAPSULE PO SCH ×3 (08:24→20:22)
[2018-06-26] MEDS: DOCUSATE SODIUM 250 MG CAPSULE PO SCH ×2 (08:25→20:25)
[2018-06-26] MEDS: POLYETHYLENE GLYCOL 3350 17 GM PACKET PO SCH (08:25)
[2018-06-26] MEDS: BENZONATATE 100 MG CAPSULE PO SCH ×3 (08:30→20:22)
[2018-06-26] MEDS: ALBUTEROL SULFATE 2.5 MG/0.5 ML NEB SOLUTION NEB SCH ×3 (15:00→23:39)
[2018-06-26] MEDS: IPRATROPIUM BROMIDE 0.5 MG/2.5 ML NEB SOLUTION NEB SCH ×3 (15:00→23:39)
[2018-06-26 16:00] VITALS: BP 117/65
[2018-06-26] MEDS: LIDOCAINE 5% TRANSDERMAL PATCH TD SCH (20:22)
[2018-06-26] MEDS: ATORVASTATIN CALCIUM 20 MG TABLET PO SCH (20:22)
[2018-06-26 23:19] VITALS: BP 134/69
[2018-06-27] MEDS: OxyCODONE HCL/ACETAMINOPHEN 5-325 MG TABLET PO PRN ×2 (06:00→16:21)
[2018-06-27 07:04] LABS: BASOPHILS % (AUTO) 0.6 % (0.0-2.0); EOSINOPHILS % (AUTO) 3.2 % (1.0-6.0); HEMATOCRIT 34.3 % (36-46); HEMOGLOBIN 11.5 g/dL (12.0-16.0); LYMPHOCYTES # (AUTO) 0.9 K/uL (1.0-4.8); LYMPHOCYTES % (AUTO) 12.3 % (22.0-44.0); MEAN CORPUSCULAR HEMOGLOBIN 31.7 pg (26.0-34.0); MEAN CORPUSCULAR HGB CONC 33.5 G/dL (31.0-37.0); MEAN CORPUSCULAR VOLUME 95 fL (80-100); MONOCYTES # (AUTO) 0.9 K/uL (0.1-1.0); MONOCYTES % (AUTO) 12.3 % (2.0-9.0); NEUTROPHILS % (AUTO) 71.6 % (40.0-70.0); PLATELET COUNT (AUTO) 284 K/uL (150-450); RED BLOOD CELL COUNT(AUTO) 3.62 MIL/uL (4.00-5.20); RED CELL DISTRIBUTION WIDTH 13.6 % (11.5-14.5)
[2018-06-27 07:22] LABS: ALBUMIN 2.7 g/dL (3.4-5.0); BILIRUBIN,TOTAL 0.7 mg/dL (0.1-1.0); CALCIUM, TOTAL 8.8 mg/dL (8.8-10.5); CREATININE 0.97 mg/dL (0.60-1.30); POTASSIUM 4.4 mmol/L (3.5-5.1); TOTAL PROTEIN, SERUM 5.6 g/dL (6.4-8.2)
[2018-06-27] MEDS: IPRATROPIUM BROMIDE 0.5 MG/2.5 ML NEB SOLUTION NEB SCH ×5 (07:33→23:00)
[2018-06-27] MEDS: ALBUTEROL SULFATE 2.5 MG/0.5 ML NEB SOLUTION NEB SCH ×5 (07:33→23:00)
[2018-06-27 08:00] VITALS: BP 121/68
[2018-06-27] MEDS: DOCUSATE SODIUM 250 MG CAPSULE PO SCH ×2 (09:00→21:09)
[2018-06-27] MEDS: POLYETHYLENE GLYCOL 3350 17 GM PACKET PO SCH (09:00)
[2018-06-27] MEDS: NITROFURANTOIN/NITROFURAN MAC 100 MG CAPSULE [MACROBID] PO SCH (09:17)
[2018-06-27] MEDS: BENZOCAINE/MENTHOL LOZENGE PO PRN (09:17)
[2018-06-27] MEDS: BuPROPion HCL 100 MG SR TABLET PO SCH ×2 (09:17→11:12)
[2018-06-27] MEDS: METOPROLOL SUCCINATE 25 MG ER TABLET PO SCH (09:18)
[2018-06-27] MEDS: ASPIRIN 81 MG EC TABLET PO SCH (09:18)
[2018-06-27] MEDS: BusPIRone HCL 15 MG TABLET PO SCH ×2 (09:18→21:09)
[2018-06-27] MEDS: FAMOTIDINE 20 MG TABLET PO SCH (09:18)
[2018-06-27] MEDS: GABAPENTIN 300 MG CAPSULE PO SCH ×3 (09:18→21:09)
[2018-06-27] MEDS: CLOPIDOGREL BISULFATE 75 MG TABLET PO SCH (09:18)
[2018-06-27] MEDS: AMOX TR/POT CLAV 500 MG/125 MG TABLET PO SCH ×3 (09:18→21:09)
[2018-06-27] MEDS: BENZONATATE 100 MG CAPSULE PO SCH ×3 (09:19→21:09)
[2018-06-27] MEDS: -LIDODERM PATCH NOTE- MISC SCH (09:22)
[2018-06-27] MEDS: COLD CREAM, SKIN EMOLLIENT 340 GM JAR TP SCH ×2 (09:23→21:10)
[2018-06-27] MEDS: LACTOBAC ACID/BULG/BIFID/THERM TABLET PO SCH (09:24)
[2018-06-27 16:21] VITALS: BP 126/60
[2018-06-27] MEDS: LIDOCAINE 5% TRANSDERMAL PATCH TD SCH (21:09)
[2018-06-27] MEDS: ATORVASTATIN CALCIUM 20 MG TABLET PO SCH (21:09)
[2018-06-27] MEDS: GuaiFENesin [SUGAR-FREE] 200 MG/10 ML SOLUTION UDCUP PO PRN ×2 (21:21)
[2018-06-28 00:32] VITALS: BP 131/65
[2018-06-28] MEDS: GuaiFENesin [SUGAR-FREE] 200 MG/10 ML SOLUTION UDCUP PO PRN ×2 (02:58→21:49)
[2018-06-28] MEDS: OxyCODONE HCL/ACETAMINOPHEN 5-325 MG TABLET PO PRN (02:58)
[2018-06-28 08:00] VITALS: BP 124/59
[2018-06-28] MEDS: DOCUSATE SODIUM 250 MG CAPSULE PO SCH ×2 (09:00→21:00)
[2018-06-28] MEDS: POLYETHYLENE GLYCOL 3350 17 GM PACKET PO SCH (09:00)
[2018-06-28] MEDS: ALBUTEROL SULFATE 2.5 MG/0.5 ML NEB SOLUTION NEB SCH ×5 (09:08→23:00)
[2018-06-28] MEDS: BENZONATATE 100 MG CAPSULE PO SCH ×3 (09:09→21:50)
[2018-06-28] MEDS: IPRATROPIUM BROMIDE 0.5 MG/2.5 ML NEB SOLUTION NEB SCH ×5 (09:09→23:00)
[2018-06-28] MEDS: FAMOTIDINE 20 MG TABLET PO SCH (09:09)
[2018-06-28] MEDS: NITROFURANTOIN/NITROFURAN MAC 100 MG CAPSULE [MACROBID] PO SCH (09:09)
[2018-06-28] MEDS: CLOPIDOGREL BISULFATE 75 MG TABLET PO SCH (09:09)
[2018-06-28] MEDS: ASPIRIN 81 MG EC TABLET PO SCH (09:11)
[2018-06-28] MEDS: BuPROPion HCL 100 MG SR TABLET PO SCH ×2 (09:12→12:58)
[2018-06-28] MEDS: METOPROLOL SUCCINATE 25 MG ER TABLET PO SCH (09:13)
[2018-06-28] MEDS: -LIDODERM PATCH NOTE- MISC SCH (09:22)
[2018-06-28] MEDS: AMOX TR/POT CLAV 500 MG/125 MG TABLET PO SCH ×3 (10:03→21:50)
[2018-06-28] MEDS: BusPIRone HCL 15 MG TABLET PO SCH ×2 (10:56→21:50)
[2018-06-28] MEDS: COLD CREAM, SKIN EMOLLIENT 340 GM JAR TP SCH ×2 (10:57→21:51)
[2018-06-28] MEDS: GABAPENTIN 300 MG CAPSULE PO SCH ×3 (10:57→21:50)
[2018-06-28] MEDS: LACTOBAC ACID/BULG/BIFID/THERM TABLET PO SCH (10:57)
[2018-06-28 15:10] VITALS: BP 120/62
[2018-06-28] MEDS: ATORVASTATIN CALCIUM 20 MG TABLET PO SCH (21:50)
[2018-06-28] MEDS: LIDOCAINE 5% TRANSDERMAL PATCH TD SCH (21:50)
[2018-06-29 00:45] VITALS: BP 123/66
[2018-06-29] MEDS: OxyCODONE HCL/ACETAMINOPHEN 5-325 MG TABLET PO PRN ×2 (03:38→23:52)
[2018-06-29] MEDS: IPRATROPIUM BROMIDE 0.5 MG/2.5 ML NEB SOLUTION NEB SCH ×5 (07:00→23:00)
[2018-06-29] MEDS: ALBUTEROL SULFATE 2.5 MG/0.5 ML NEB SOLUTION NEB SCH ×5 (07:00→23:00)
[2018-06-29 08:00] VITALS: BP 147/75
[2018-06-29] MEDS: BuPROPion HCL 100 MG SR TABLET PO SCH ×2 (08:28→12:17)
[2018-06-29] MEDS: AMOX TR/POT CLAV 500 MG/125 MG TABLET PO SCH ×3 (08:28→20:11)
[2018-06-29] MEDS: FAMOTIDINE 20 MG TABLET PO SCH (08:28)
[2018-06-29] MEDS: BusPIRone HCL 15 MG TABLET PO SCH ×2 (08:28→20:11)
[2018-06-29] MEDS: BENZONATATE 100 MG CAPSULE PO SCH ×3 (08:28→20:11)
[2018-06-29] MEDS: METOPROLOL SUCCINATE 25 MG ER TABLET PO SCH (08:28)
[2018-06-29] MEDS: LACTOBAC ACID/BULG/BIFID/THERM TABLET PO SCH (08:28)
[2018-06-29] MEDS: GABAPENTIN 300 MG CAPSULE PO SCH ×3 (08:28→20:11)
[2018-06-29] MEDS: ASPIRIN 81 MG EC TABLET PO SCH (08:28)
[2018-06-29] MEDS: NITROFURANTOIN/NITROFURAN MAC 100 MG CAPSULE [MACROBID] PO SCH (08:28)
[2018-06-29] MEDS: COLD CREAM, SKIN EMOLLIENT 340 GM JAR TP SCH ×2 (08:29→20:11)
[2018-06-29] MEDS: -LIDODERM PATCH NOTE- MISC SCH (08:31)
[2018-06-29] MEDS: POLYETHYLENE GLYCOL 3350 17 GM PACKET PO SCH (09:00)
[2018-06-29] MEDS: DOCUSATE SODIUM 250 MG CAPSULE PO SCH ×2 (09:00→20:48)
[2018-06-29] MEDS: CLOPIDOGREL BISULFATE 75 MG TABLET PO SCH (10:16)
[2018-06-29 16:24] VITALS: BP 124/68
[2018-06-29 20:08] VITALS: BP 127/74
[2018-06-29] MEDS: LIDOCAINE 5% TRANSDERMAL PATCH TD SCH (20:10)
[2018-06-29] MEDS: ATORVASTATIN CALCIUM 20 MG TABLET PO SCH (20:11)
[2018-06-29 23:52] VITALS: BP 126/50
[2018-06-30] MEDS: ALBUTEROL SULFATE 2.5 MG/0.5 ML NEB SOLUTION NEB SCH ×4 (07:00→19:00)
[2018-06-30] MEDS: IPRATROPIUM BROMIDE 0.5 MG/2.5 ML NEB SOLUTION NEB SCH ×4 (07:00→19:00)
[2018-06-30] MEDS: POLYETHYLENE GLYCOL 3350 17 GM PACKET PO SCH (08:29)
[2018-06-30] MEDS: BENZONATATE 100 MG CAPSULE PO SCH ×3 (08:29→21:24)
[2018-06-30] MEDS: BuPROPion HCL 100 MG SR TABLET PO SCH ×2 (08:29→13:40)
[2018-06-30] MEDS: LACTOBAC ACID/BULG/BIFID/THERM TABLET PO SCH (08:29)
[2018-06-30] MEDS: DOCUSATE SODIUM 250 MG CAPSULE PO SCH ×2 (08:29→21:24)
[2018-06-30] MEDS: BusPIRone HCL 15 MG TABLET PO SCH ×2 (08:29→21:24)
[2018-06-30] MEDS: GABAPENTIN 300 MG CAPSULE PO SCH ×3 (08:29→21:24)
[2018-06-30] MEDS: METOPROLOL SUCCINATE 25 MG ER TABLET PO SCH (08:29)
[2018-06-30] MEDS: FAMOTIDINE 20 MG TABLET PO SCH (08:29)
[2018-06-30] MEDS: CLOPIDOGREL BISULFATE 75 MG TABLET PO SCH (08:29)
[2018-06-30] MEDS: NITROFURANTOIN/NITROFURAN MAC 100 MG CAPSULE [MACROBID] PO SCH (08:29)
[2018-06-30] MEDS: AMOX TR/POT CLAV 500 MG/125 MG TABLET PO SCH ×3 (08:29→21:24)
[2018-06-30 08:30] VITALS: BP 134/70
[2018-06-30] MEDS: ASPIRIN 81 MG EC TABLET PO SCH (08:30)
[2018-06-30] MEDS: -LIDODERM PATCH NOTE- MISC SCH (08:30)
[2018-06-30] MEDS: COLD CREAM, SKIN EMOLLIENT 340 GM JAR TP SCH ×2 (08:36→21:25)
[2018-06-30] MEDS: GuaiFENesin [SUGAR-FREE] 200 MG/10 ML SOLUTION UDCUP PO PRN (13:40)
[2018-06-30 16:00] VITALS: BP 123/53
[2018-06-30] MEDS: OxyCODONE HCL/ACETAMINOPHEN 5-325 MG TABLET PO PRN (18:09)
[2018-06-30] MEDS: LIDOCAINE 5% TRANSDERMAL PATCH TD SCH (21:24)
[2018-06-30] MEDS: ATORVASTATIN CALCIUM 20 MG TABLET PO SCH (21:24)
[2018-07-01] VITALS: BP 123/68
[2018-07-01] MEDS: OxyCODONE HCL/ACETAMINOPHEN 5-325 MG TABLET PO PRN ×3 (06:32→20:40)
[2018-07-01] MEDS: ALBUTEROL SULFATE 2.5 MG/0.5 ML NEB SOLUTION NEB SCH ×3 (07:00→15:00)
[2018-07-01] MEDS: IPRATROPIUM BROMIDE 0.5 MG/2.5 ML NEB SOLUTION NEB SCH ×3 (07:00→15:00)
[2018-07-01 07:33] VITALS: BP 142/77
[2018-07-01] MEDS: BENZONATATE 100 MG CAPSULE PO SCH ×3 (08:24→19:42)
[2018-07-01] MEDS: -LIDODERM PATCH NOTE- MISC SCH (08:24)
[2018-07-01] MEDS: FAMOTIDINE 20 MG TABLET PO SCH (08:24)
[2018-07-01] MEDS: ASPIRIN 81 MG EC TABLET PO SCH (08:24)
[2018-07-01] MEDS: POLYETHYLENE GLYCOL 3350 17 GM PACKET PO SCH (08:24)
[2018-07-01] MEDS: CLOPIDOGREL BISULFATE 75 MG TABLET PO SCH (08:24)
[2018-07-01] MEDS: GABAPENTIN 300 MG CAPSULE PO SCH ×3 (08:24→19:42)
[2018-07-01] MEDS: DOCUSATE SODIUM 250 MG CAPSULE PO SCH ×2 (08:24→19:42)
[2018-07-01] MEDS: LACTOBAC ACID/BULG/BIFID/THERM TABLET PO SCH (09:32)
[2018-07-01] MEDS: NITROFURANTOIN/NITROFURAN MAC 100 MG CAPSULE [MACROBID] PO SCH (09:32)
[2018-07-01] MEDS: AMOX TR/POT CLAV 500 MG/125 MG TABLET PO SCH ×3 (09:32→19:42)
[2018-07-01] MEDS: BusPIRone HCL 15 MG TABLET PO SCH ×2 (09:32→19:42)
[2018-07-01] MEDS: METOPROLOL SUCCINATE 25 MG ER TABLET PO SCH (09:32)
[2018-07-01] MEDS: BuPROPion HCL 100 MG SR TABLET PO SCH ×2 (09:32→13:27)
[2018-07-01] MEDS: COLD CREAM, SKIN EMOLLIENT 340 GM JAR TP SCH ×2 (09:35→19:43)
[2018-07-01 15:28] VITALS: BP 100/40
[2018-07-01] MEDS: LIDOCAINE 5% TRANSDERMAL PATCH TD SCH (19:42)
[2018-07-01] MEDS: ATORVASTATIN CALCIUM 20 MG TABLET PO SCH (19:42)
[2018-07-02 02:01] VITALS: BP 131/55
[2018-07-02] MEDS: OxyCODONE HCL/ACETAMINOPHEN 5-325 MG TABLET PO PRN ×2 (02:01→08:05)
[2018-07-02] MEDS: BENZONATATE 100 MG CAPSULE PO SCH ×3 (08:03→20:20)
[2018-07-02 08:05] VITALS: BP 145/94
[2018-07-02] MEDS: BusPIRone HCL 15 MG TABLET PO SCH ×2 (08:05→20:20)
[2018-07-02] MEDS: AMOX TR/POT CLAV 500 MG/125 MG TABLET PO SCH ×3 (08:06→20:20)
[2018-07-02] MEDS: -LIDODERM PATCH NOTE- MISC SCH (08:06)
[2018-07-02] MEDS: METOPROLOL SUCCINATE 25 MG ER TABLET PO SCH (08:06)
[2018-07-02] MEDS: GABAPENTIN 300 MG CAPSULE PO SCH ×3 (08:06→20:21)
[2018-07-02] MEDS: FAMOTIDINE 20 MG TABLET PO SCH (08:07)
[2018-07-02] MEDS: BuPROPion HCL 100 MG SR TABLET PO SCH ×2 (08:07→13:03)
[2018-07-02 11:42] VITALS: BP 131/66
[2018-07-02 11:43] VITALS: BP 132/65
[2018-07-02] MEDS: POLYETHYLENE GLYCOL 3350 17 GM PACKET PO SCH (13:03)
[2018-07-02] MEDS: DOCUSATE SODIUM 250 MG CAPSULE PO SCH ×2 (13:03→20:20)
[2018-07-02] MEDS: NITROFURANTOIN/NITROFURAN MAC 100 MG CAPSULE [MACROBID] PO SCH (13:03)
[2018-07-02] MEDS: CLOPIDOGREL BISULFATE 75 MG TABLET PO SCH (13:03)
[2018-07-02] MEDS: LACTOBAC ACID/BULG/BIFID/THERM TABLET PO SCH (13:03)
[2018-07-02] MEDS: COLD CREAM, SKIN EMOLLIENT 340 GM JAR TP SCH ×2 (13:04→20:21)
[2018-07-02] MEDS: ASPIRIN 81 MG EC TABLET PO SCH (13:42)
[2018-07-02] MEDS ORDERED: LIDOCAINE 1% 10 ML VIAL INJ ONE (15:15)
[2018-07-02] MEDS ORDERED: TRIAMCINOLONE ACETONIDE 40 MG/ML VIAL IM ONE (15:15)
[2018-07-02] MEDS ORDERED: BUPIVACAINE HCL/PF 0.5% 10 ML VIAL INJ ONE (15:15)
[2018-07-02 16:03] VITALS: BP 109/69
[2018-07-02] MEDS: LIDOCAINE 5% TRANSDERMAL PATCH TD SCH (20:20)
[2018-07-02] MEDS: ATORVASTATIN CALCIUM 20 MG TABLET PO SCH (20:21)
[2018-07-03] VITALS: BP 115/58
[2018-07-03 06:59] LABS: BASOPHILS % (AUTO) 0.6 % (0.0-2.0); EOSINOPHILS % (AUTO) 3.6 % (1.0-6.0); HEMATOCRIT 36.5 % (36-46); LYMPHOCYTES # (AUTO) 0.9 K/uL (1.0-4.8); LYMPHOCYTES % (AUTO) 14.8 % (22.0-44.0); MEAN CORPUSCULAR HEMOGLOBIN 31.6 pg (26.0-34.0); MEAN CORPUSCULAR VOLUME 96 fL (80-100); MONOCYTES # (AUTO) 0.6 K/uL (0.1-1.0); MONOCYTES % (AUTO) 10.7 % (2.0-9.0); NEUTROPHILS # (AUTO) 4.2 K/uL (1.8-7.7); NEUTROPHILS % (AUTO) 70.3 % (40.0-70.0); PLATELET COUNT (AUTO) 242 K/uL (150-450); RED CELL DISTRIBUTION WIDTH 14.6 % (11.5-14.5)
[2018-07-03 07:10] LABS: BILIRUBIN,TOTAL 0.6 mg/dL (0.1-1.0); CALCIUM, TOTAL 8.8 mg/dL (8.8-10.5); CREATININE 0.89 mg/dL (0.60-1.30); MAGNESIUM 2.1 mg/dL (1.80-2.40); POTASSIUM 4.4 mmol/L (3.5-5.1); TOTAL PROTEIN, SERUM 5.9 g/dL (6.4-8.2)
[2018-07-03 07:50] VITALS: BP 126/67
[2018-07-03] MEDS: POLYETHYLENE GLYCOL 3350 17 GM PACKET PO SCH (09:00)
[2018-07-03] MEDS: -LIDODERM PATCH NOTE- MISC SCH (09:21)
[2018-07-03] MEDS: BusPIRone HCL 15 MG TABLET PO SCH ×2 (09:23→20:11)
[2018-07-03] MEDS: METOPROLOL SUCCINATE 25 MG ER TABLET PO SCH (09:23)
[2018-07-03] MEDS: BuPROPion HCL 100 MG SR TABLET PO SCH ×2 (09:23→12:46)
[2018-07-03] MEDS: ASPIRIN 81 MG EC TABLET PO SCH (09:23)
[2018-07-03] MEDS: AMOX TR/POT CLAV 500 MG/125 MG TABLET PO SCH ×3 (09:23→20:11)
[2018-07-03] MEDS: FAMOTIDINE 20 MG TABLET PO SCH (09:24)
[2018-07-03] MEDS: DOCUSATE SODIUM 250 MG CAPSULE PO SCH ×2 (09:24→20:11)
[2018-07-03] MEDS: CLOPIDOGREL BISULFATE 75 MG TABLET PO SCH (09:24)
[2018-07-03] MEDS: BENZONATATE 100 MG CAPSULE PO SCH ×3 (09:24→20:11)
[2018-07-03] MEDS: LACTOBAC ACID/BULG/BIFID/THERM TABLET PO SCH (09:24)
[2018-07-03] MEDS: NITROFURANTOIN/NITROFURAN MAC 100 MG CAPSULE [MACROBID] PO SCH (09:24)
[2018-07-03] MEDS: GABAPENTIN 300 MG CAPSULE PO SCH ×3 (09:25→20:12)
[2018-07-03] MEDS: COLD CREAM, SKIN EMOLLIENT 340 GM JAR TP SCH ×2 (09:26→20:12)
[2018-07-03] MEDS: OxyCODONE HCL/ACETAMINOPHEN 5-325 MG TABLET PO PRN (09:33)
[2018-07-03 16:15] VITALS: BP 109/66
[2018-07-03] MEDS: LIDOCAINE 5% TRANSDERMAL PATCH TD SCH (20:11)
[2018-07-03] MEDS: ATORVASTATIN CALCIUM 20 MG TABLET PO SCH (20:11)
[2018-07-04 00:39] VITALS: BP 132/63
[2018-07-04 07:00] VITALS: BP 131/62
[2018-07-04] MEDS: OxyCODONE HCL/ACETAMINOPHEN 5-325 MG TABLET PO PRN (07:44)
[2018-07-04] MEDS: -LIDODERM PATCH NOTE- MISC SCH (08:38)
[2018-07-04] MEDS: BusPIRone HCL 15 MG TABLET PO SCH ×2 (08:39→21:19)
[2018-07-04] MEDS: LACTOBAC ACID/BULG/BIFID/THERM TABLET PO SCH (08:39)
[2018-07-04] MEDS: METOPROLOL SUCCINATE 25 MG ER TABLET PO SCH (08:40)
[2018-07-04] MEDS: ASPIRIN 81 MG EC TABLET PO SCH (08:40)
[2018-07-04] MEDS: BENZONATATE 100 MG CAPSULE PO SCH ×3 (08:40→21:19)
[2018-07-04] MEDS: FAMOTIDINE 20 MG TABLET PO SCH (08:40)
[2018-07-04] MEDS: CLOPIDOGREL BISULFATE 75 MG TABLET PO SCH (08:40)
[2018-07-04] MEDS: BuPROPion HCL 100 MG SR TABLET PO SCH ×2 (08:41→12:52)
[2018-07-04] MEDS: NITROFURANTOIN/NITROFURAN MAC 100 MG CAPSULE [MACROBID] PO SCH (08:41)
[2018-07-04] MEDS: POLYETHYLENE GLYCOL 3350 17 GM PACKET PO SCH (08:41)
[2018-07-04] MEDS: DOCUSATE SODIUM 250 MG CAPSULE PO SCH ×2 (08:41→21:19)
[2018-07-04] MEDS: GABAPENTIN 300 MG CAPSULE PO SCH ×3 (08:41→21:19)
[2018-07-04] MEDS: COLD CREAM, SKIN EMOLLIENT 340 GM JAR TP SCH ×2 (08:42→21:19)
[2018-07-04 16:17] VITALS: BP 126/62
[2018-07-04 21:17] VITALS: BP 105/63
[2018-07-04] MEDS: LIDOCAINE 5% TRANSDERMAL PATCH TD SCH (21:19)
[2018-07-04] MEDS: ATORVASTATIN CALCIUM 20 MG TABLET PO SCH (21:19)
[2018-07-05] VITALS: BP 118/62
[2018-07-05 07:20] VITALS: BP 138/67
[2018-07-05] MEDS: LACTOBAC ACID/BULG/BIFID/THERM TABLET PO SCH (08:10)
[2018-07-05] MEDS: BusPIRone HCL 15 MG TABLET PO SCH ×2 (08:10→20:52)
[2018-07-05] MEDS: BENZONATATE 100 MG CAPSULE PO SCH ×3 (08:10→20:52)
[2018-07-05] MEDS: NITROFURANTOIN/NITROFURAN MAC 100 MG CAPSULE [MACROBID] PO SCH (08:10)
[2018-07-05] MEDS: CLOPIDOGREL BISULFATE 75 MG TABLET PO SCH (08:10)
[2018-07-05] MEDS: METOPROLOL SUCCINATE 25 MG ER TABLET PO SCH (08:10)
[2018-07-05] MEDS: ASPIRIN 81 MG EC TABLET PO SCH (08:10)
[2018-07-05] MEDS: DOCUSATE SODIUM 250 MG CAPSULE PO SCH ×2 (08:11→20:54)
[2018-07-05] MEDS: GABAPENTIN 300 MG CAPSULE PO SCH ×3 (08:11→20:52)
[2018-07-05] MEDS: POLYETHYLENE GLYCOL 3350 17 GM PACKET PO SCH ×2 (08:12→09:00)
[2018-07-05] MEDS: FAMOTIDINE 20 MG TABLET PO SCH (08:14)
[2018-07-05] MEDS: COLD CREAM, SKIN EMOLLIENT 340 GM JAR TP SCH ×2 (08:14→20:54)
[2018-07-05] MEDS: BuPROPion HCL 100 MG SR TABLET PO SCH ×2 (08:14→14:59)
[2018-07-05] MEDS: -LIDODERM PATCH NOTE- MISC SCH (08:21)
[2018-07-05 16:31] VITALS: BP 129/63
[2018-07-05] MEDS: ATORVASTATIN CALCIUM 20 MG TABLET PO SCH (20:52)
[2018-07-05] MEDS: LIDOCAINE 5% TRANSDERMAL PATCH TD SCH (20:54)
[2018-07-06 00:49] VITALS: BP 132/80
[2018-07-06] MEDS: OxyCODONE HCL/ACETAMINOPHEN 5-325 MG TABLET PO PRN (00:49)
[2018-07-06 07:05] LABS: BASOPHILS % (AUTO) 1.1 % (0.0-2.0); EOSINOPHILS % (AUTO) 5.5 % (1.0-6.0); HEMATOCRIT 37.9 % (36-46); HEMOGLOBIN 12.6 g/dL (12.0-16.0); LYMPHOCYTES % (AUTO) 14.2 % (22.0-44.0); MEAN CORPUSCULAR HEMOGLOBIN 31.8 pg (26.0-34.0); MEAN CORPUSCULAR HGB CONC 33.2 G/dL (31.0-37.0); MEAN CORPUSCULAR VOLUME 96 fL (80-100); MONOCYTES # (AUTO) 0.7 K/uL (0.1-1.0); MONOCYTES % (AUTO) 10.9 % (2.0-9.0); NEUTROPHILS # (AUTO) 4.6 K/uL (1.8-7.7); NEUTROPHILS % (AUTO) 68.3 % (40.0-70.0); PLATELET COUNT (AUTO) 206 K/uL (150-450); RED BLOOD CELL COUNT(AUTO) 3.94 MIL/uL (4.00-5.20); RED CELL DISTRIBUTION WIDTH 15.2 % (11.5-14.5)
[2018-07-06 07:20] VITALS: BP 144/77
[2018-07-06 07:36] LABS: ALANINE AMINOTRANSFERASE 21 U/L (12-78); ALBUMIN 3.2 g/dL (3.4-5.0); ALKALINE PHOSPHATASE 62 U/L (46-116); ANION GAP 10 mmol/L (8-16); ASPARTATE AMINOTRANSFERASE 23 U/L (15-37); BILIRUBIN,TOTAL 0.4 mg/dL (0.1-1.0); CALCIUM, TOTAL 9.2 mg/dL (8.8-10.5); CARBON DIOXIDE 25 mmol/L (22-29); CHLORIDE 107 mmol/L (98-107); CREATININE 0.84 mg/dL (0.60-1.30); GLUCOSE,RANDOM 95 mg/dL (70-110); POTASSIUM 4.5 mmol/L (3.5-5.1); SODIUM SERUM 142 mmol/L (136-145); TOTAL PROTEIN, SERUM 5.7 g/dL (6.4-8.2); UREA NITROGEN, BLOOD 16 mg/dL (7-18)
[2018-07-06 07:42] LABS: GLOMERULAR FILTR. RATE CALC > 60 mL/min (>60)
[2018-07-06] MEDS: POLYETHYLENE GLYCOL 3350 17 GM PACKET PO SCH (08:32)
[2018-07-06] MEDS: CLOPIDOGREL BISULFATE 75 MG TABLET PO SCH (08:33)
[2018-07-06] MEDS: BusPIRone HCL 15 MG TABLET PO SCH ×2 (08:33→21:21)
[2018-07-06] MEDS: BENZONATATE 100 MG CAPSULE PO SCH ×4 (08:33→21:21)
[2018-07-06] MEDS: LACTOBAC ACID/BULG/BIFID/THERM TABLET PO SCH (08:33)
[2018-07-06] MEDS: ASPIRIN 81 MG EC TABLET PO SCH (08:33)
[2018-07-06] MEDS: BuPROPion HCL 100 MG SR TABLET PO SCH ×2 (08:33→12:31)
[2018-07-06] MEDS: NITROFURANTOIN/NITROFURAN MAC 100 MG CAPSULE [MACROBID] PO SCH (08:33)
[2018-07-06] MEDS: DOCUSATE SODIUM 250 MG CAPSULE PO SCH ×2 (08:33→21:21)
[2018-07-06] MEDS: FAMOTIDINE 20 MG TABLET PO SCH (08:33)
[2018-07-06] MEDS: GABAPENTIN 300 MG CAPSULE PO SCH ×4 (08:33→21:21)
[2018-07-06] MEDS: METOPROLOL SUCCINATE 25 MG ER TABLET PO SCH (08:33)
[2018-07-06] MEDS: COLD CREAM, SKIN EMOLLIENT 340 GM JAR TP SCH ×2 (08:35→21:21)
[2018-07-06] MEDS: -LIDODERM PATCH NOTE- MISC SCH (08:36)
[2018-07-06 16:00] VITALS: BP 115/59
[2018-07-06] MEDS: LIDOCAINE 5% TRANSDERMAL PATCH TD SCH (21:21)
[2018-07-06] MEDS: ATORVASTATIN CALCIUM 20 MG TABLET PO SCH (21:21)
[2018-07-07] VITALS: BP 134/65
[2018-07-07 03:09] VITALS: BP_SYST 135
[2018-07-07] MEDS: OxyCODONE HCL/ACETAMINOPHEN 5-325 MG TABLET PO PRN ×2 (03:09→21:04)
[2018-07-07] MEDS ORDERED: LIDO700A15 TD (07:29)
[2018-07-07] MEDS ORDERED: POLY17PO PO (07:29)
[2018-07-07] MEDS: -LIDODERM PATCH NOTE- MISC SCH (09:00)
[2018-07-07] MEDS: POLYETHYLENE GLYCOL 3350 17 GM PACKET PO SCH (09:00)
[2018-07-07] MEDS: DOCUSATE SODIUM 250 MG CAPSULE PO SCH ×2 (09:06→20:54)
[2018-07-07] MEDS: ASPIRIN 81 MG EC TABLET PO SCH (09:07)
[2018-07-07] MEDS: METOPROLOL SUCCINATE 25 MG ER TABLET PO SCH (09:08)
[2018-07-07] MEDS: BuPROPion HCL 100 MG SR TABLET PO SCH ×2 (09:08→12:17)
[2018-07-07] MEDS: BENZONATATE 100 MG CAPSULE PO SCH ×3 (09:09→20:54)
[2018-07-07] MEDS: LACTOBAC ACID/BULG/BIFID/THERM TABLET PO SCH (09:10)
[2018-07-07] MEDS: FAMOTIDINE 20 MG TABLET PO SCH (09:11)
[2018-07-07] MEDS: CLOPIDOGREL BISULFATE 75 MG TABLET PO SCH (09:11)
[2018-07-07] MEDS: COLD CREAM, SKIN EMOLLIENT 340 GM JAR TP SCH ×2 (09:11→20:53)
[2018-07-07] MEDS: BusPIRone HCL 15 MG TABLET PO SCH ×2 (09:11→20:54)
[2018-07-07] MEDS: GABAPENTIN 300 MG CAPSULE PO SCH ×3 (09:11→20:54)
[2018-07-07] MEDS: NITROFURANTOIN/NITROFURAN MAC 100 MG CAPSULE [MACROBID] PO SCH (09:30)
[2018-07-07 10:23] VITALS: BP 139/69
[2018-07-07 16:01] VITALS: BP 125/68
[2018-07-07] MEDS: LIDOCAINE 5% TRANSDERMAL PATCH TD SCH (20:54)
[2018-07-07] MEDS: ATORVASTATIN CALCIUM 20 MG TABLET PO SCH (20:54)
[2018-07-08] VITALS: BP 126/61
[2018-07-08 07:20] VITALS: BP 150/80
[2018-07-08] MEDS: POLYETHYLENE GLYCOL 3350 17 GM PACKET PO SCH (09:00)
[2018-07-08] MEDS: DOCUSATE SODIUM 250 MG CAPSULE PO SCH (09:02)
[2018-07-08] MEDS: LACTOBAC ACID/BULG/BIFID/THERM TABLET PO SCH (09:02)
[2018-07-08] MEDS: BusPIRone HCL 15 MG TABLET PO SCH (09:02)
[2018-07-08] MEDS: CLOPIDOGREL BISULFATE 75 MG TABLET PO SCH (09:03)
[2018-07-08] MEDS: ASPIRIN 81 MG EC TABLET PO SCH (09:03)
[2018-07-08] MEDS: BuPROPion HCL 100 MG SR TABLET PO SCH ×2 (09:03→12:49)
[2018-07-08] MEDS: NITROFURANTOIN/NITROFURAN MAC 100 MG CAPSULE [MACROBID] PO SCH (09:03)
[2018-07-08] MEDS: METOPROLOL SUCCINATE 25 MG ER TABLET PO SCH (09:03)
[2018-07-08] MEDS: FAMOTIDINE 20 MG TABLET PO SCH (09:04)
[2018-07-08] MEDS: BENZONATATE 100 MG CAPSULE PO SCH (09:04)
[2018-07-08] MEDS: COLD CREAM, SKIN EMOLLIENT 340 GM JAR TP SCH (09:05)
[2018-07-08] MEDS: GABAPENTIN 300 MG CAPSULE PO SCH (09:09)
[2018-07-08] MEDS: -LIDODERM PATCH NOTE- MISC SCH (09:09)
[2018-07-08] MEDS ORDERED: PERCT PO (10:55)
== END 2018-07-08 12:50 | disposition home health service (06) | DRG 55 ==
LOC: 2WR 14:40
PROVIDERS: ADMIT Physical Medicine & Rehabilitation; ATTEND Physical Medicine & Rehabilitation
DX: D32.9 Benign neoplasm of meninges, unspecified (principal); I69.354 Hemiplegia and hemiparesis following cerebral infarction affecting left non-dominant side; I47.2 Ventricular tachycardia; F11.20 Opioid dependence, uncomplicated; J44.1 Chronic obstructive pulmonary disease with (acute) exacerbation; J90 Pleural effusion, not elsewhere classified; I45.10 Unspecified right bundle-branch block; I65.21 Occlusion and stenosis of right carotid artery; Z96.612 Presence of left artificial shoulder joint; Z96.642 Presence of left artificial hip joint; E66.9 Obesity, unspecified; E78.5 Hyperlipidemia, unspecified; G89.29 Other chronic pain; I10 Essential (primary) hypertension; J44.9 Chronic obstructive pulmonary disease, unspecified; F32.9 Major depressive disorder, single episode, unspecified; Z85.828 Personal history of other malignant neoplasm of skin; Z87.440 Personal history of urinary (tract) infections; Z91.81 History of falling; Z88.9 Allergy status to unspecified drugs, medicaments and biological substances; Z79.899 Other long term (current) drug therapy; Z68.26 Body mass index [BMI] 26.0-26.9, adult
CPT/HCPCS: 76705; 83735; 87070; 87081; 90732; 92507; 92508; 92523; 92526; 93005; 94640; 97110; 97112; 97116; 97150; 97163; 97166; 97530; 97535; 99366; G0238; J3301; J3490; Q0162